=== PATIENT | female | born 1980 | race Caucasian/White ===

== ENCOUNTER 2017-09-30 02:55 | Emergency (ER) | payer OTHER ==
--- NOTE | 2017-09-30 03:09 | PDOC ---
History of Present Illness - General Stated Complaint: LEG PAIN Time Seen by Provider: 09/30/17 03:09 - History of Present Illness Initial Comments: 37 year old female with multiple psychiatric conditions including BPD1 presenting with sudden onset left knee pain. Patient states that her left knee was suddenly dislocated earlier on the day before admission and she reduced it herself without pain. She went about her day without ambulatory difficulty and a sharp left knee pain woke her up suddenly out of bed. Since then she has had difficulty ambulating on her left leg but is able to actually ambulate with a slight limp. Describes the pain as 10/10 and sharp. She has never dislocated her knee before and states that she is becoming very anxious because of her pain. Denies fevers, chills, nausea, vomiting, diarrhea, constipation, chest pain, SOB, or other symptoms. 09/30/17 06:14 Past History - Past Medical History Allergies/Adverse Reactions: Allergies Allergy/AdvReac Type Severity Reaction Status Date / Time morphine Allergy Itching Verified 09/30/17 03:24 Home Medications: Ambulatory Orders Benztropine Mesylate [Cogentin -] 1 mg PO DAILY 09/30/17 Citalopram Hydrobromide [Celexa -] 10 mg PO DAILY 09/30/17 Haloperidol [Haldol -] 1 mg PO DAILY 09/30/17 Quetiapine Fumarate "Xr" [Seroquel Xr -] 400 mg PO DAILY 09/30/17 DVT: Yes - Surgical History Abdominal Surgery: Yes Cholecystectomy: Yes - Suicide/Smoking/Psychosocial Hx Smoking Status: No Smoking History: Current every day smoker Have you smoked in the past 12 months: Yes Number of Cigarettes Smoked Daily: 4 Review of Systems - Review of Systems Constitutional: No: Chills, Diaphoresis, Fever HEENTM: No: Blurred Vision, Nose Congestion Respiratory: No: Cough, Shortness of Breath, Stridor Cardiac (ROS): No: Chest Pain, Palpitations ABD/GI: No: Diarrhea, Nausea, Vomiting : No: Dysuria, Discharge Musculoskeletal: Yes: Joint Pain, Joint Stiffness. No: Muscle Weakness Integumentary: No: Bruising, Lesions, Rash Neurological: No: Headache, Numbness, Paresthesia Psychiatric: Yes: Anxiety, Depression, Frequent Crying, Stressors, Emotional Problems *Physical Exam - Physical Exam General Appearance: Yes: Nourished, Appropriately Dressed. No: Apparent Distress HEENT: positive: EOMI, VANESA, Normal ENT Inspection, Normal Voice Neck: positive: Trachea midline, Normal Thyroid, Supple. negative: Tender, Rigid Respiratory/Chest: positive: Lungs Clear, Normal Breath Sounds. negative: Chest Tender, Respiratory Distress Cardiovascular: positive: Regular Rhythm, Regular Rate Gastrointestinal/Abdominal: positive: Normal Bowel Sounds, Flat, Soft. negative : Tender Musculoskeletal: positive: Normal Inspection. negative: Decreased Range of Motion Extremity: positive: Normal Capillary Refill, Normal Inspection, Normal Range of Motion. negative: Tender Integumentary: positive: Normal Color, Dry, Warm Neurologic: positive: Fully Oriented, Alert, Normal Response, Motor Strength 5/ 5. negative: Normal Mood/Affect (becomes very tearful without inciting event) Medical Decision Making - Medical Decision Making 37 year old female with left knee pain that resolved with Tylenol PO. Knee XRs negative and patient wants to go home. Will DC home with PCP follow up and ibuprofen use instructions. 09/30/17 07:20 *DC/Admit/Observation/Transfer Diagnosis at time of Disposition: Knee pain Qualifiers: Chronicity: acute Laterality: left Qualified Code(s): M25.562 - Pain in left knee - Discharge Dispostion Disposition: HOME Condition at time of disposition: Improved Admit: No - Referrals Referrals: Chacorta Colin MD [Staff Physician] - - Patient Instructions Additional Instructions: Your knee is not broken, please come back to the ED if you have new or worsening symptoms. Please see your primary care physician within the nest 3 days. Please use tylenol and motrin for your knee pain. - Post Discharge Activity
[2017-09-30] MEDS ORDERED: ACETAMINOPHEN 1000 MG/100 ML VIAL (NON FORMULARY) IVPB ONE (03:25)
[2017-09-30] MEDS ORDERED: ONDANSETRON 4 MG/2 ML VIAL IVPUSH ONE (03:25)
[2017-09-30 03:26] VITALS: TEMP 98; BMI 30.9
[2017-09-30] MEDS ORDERED: ACETAMINOPHEN INJECTION 100 ML IVPB ONE ×2 (03:32→04:40)
[2017-09-30] MEDS ORDERED: ONDANSETRON 4 MG/2 ML VIAL ONE (03:33)
[2017-09-30] MEDS ORDERED: ACETAMINOPHEN 325 MG TABLET (FP) ONE (03:57)
[2017-09-30] MEDS ORDERED: ACETAMINOPHEN 500 MG TABLET (FP) PO ONE (04:45)
[2017-09-30 07:44] VITALS: BP 144/96; PULSE 88
--- NOTE | 2017-09-30 07:54 | PDOC ---
Attending Attestation - Resident Resident Name: Mayuri Redding - ED Attending Attestation I have performed the following: I have examined & evaluated the patient, The case was reviewed & discussed with the resident, I agree w/resident's findings & plan, Exceptions are as noted - HPI HPI: 09/30/17 07:50 Patient is a 37 year old female with a significant past medical history of DVT who presents to the ED with complaints of left knee pain that began earlier today. Patient reports walking this afternoon when her left knee suddenly popped out of its socket, stating she did not feel any immediate pain and popped it back into place and continued her day. She reports going to bed tonight and began to experience progressive dull knee pain, prompting her to come into the ED for further evaluation stating, i knew it was going to get worse tomorrow. Patient reports experiencing an episode of anxiety and nausea, followed by 1 episode of vomiting yesterday evening. No tx tried. Denies chest pain, Sob. Denies nausea, vomiting. Denies fever, chills. Denies decreased appetite. Denies any contact with sick individuals, out of state travelling. Denies any other symptoms. Allergies: Morphine Social history: Current smoker. No alcohol. No illicit drugs. Surgical history: Two C-sections, Cholecystectomy PMD: None - Physicial Exam PE: 09/30/17 07:50 GENERAL: Awake, alert, and fully oriented, in no acute distress HEAD: No signs of trauma EYES: PERRLA, EOMI, sclera anicteric, conjunctiva clear ENT: Auricles normal inspection, hearing grossly normal, nares patent, oropharynx clear without exudates. Moist mucosa NECK: Normal ROM, supple, no lymphadenopathy, JVD, or masses LUNGS: Breath sounds equal, clear to auscultation bilaterally. No wheezes, and no crackles HEART: Regular rate and rhythm, normal S1 and S2, no murmurs, rubs or gallops ABDOMEN: Soft, nontender, normoactive bowel sounds. No guarding, no rebound. No masses EXTREMITIES: Normal range of motion, no edema. No clubbing or cyanosis. No cords , erythema. L knee with no deformities, bruising. +mild ttp in region of left MCL. 2+ DP and TP pulses b/l NEUROLOGICAL: Normal speech, cranial nerves intact, negative pronator drift, 5/ 5 strength in all 4 extremities, normal sensation to light touch in all 4 extremities, normal cerebellar exam, normal gait, normal reflexes and tone SKIN: Warm, Dry, normal turgor, no rashes or lesions noted. - Medical Decision Making 09/30/17 07:50 37-year-old female presents with left knee pain after sensation that it popped out of the socket medially and relocated itself earlier today. Patient has been ambulating comfortably on the knee since, but began to experience pain this evening. Exam with minimal ttp to L MCL area, possible ligamentous injury? Knee is NV intact. Pt able to ambulate on the L knee, with strong distal pulses. KAROL 1.3 in LLE, thus no evidence of vascular injury. With pt bearing weight on knee , unlikely knee dislocation. XR with no bony pathology, pt feels better with tylenol. Ambulating in ED, requests DC home. I discussed the physical exam findings, ancillary test results and final diagnoses with the patient. I answered all of the patient's questions. The patient was satisfied with the care received and felt comfortable with the discharge plan and treatment plan. The patient will call their primary care physician within 24 hours to arrange follow-up and will return to the Emergency Department with any new, persistent or worsening symptoms.
--- NOTE | 2017-09-30 15:59 | EKG ---
Test Reason : Blood Pressure : / mmHG Vent. Rate : 095 BPM Atrial Rate : 095 BPM P-R Int : 130 ms QRS Dur : 080 ms QT Int : 404 ms P-R-T Axes : 052 028 016 degrees QTc Int : 507 ms NORMAL SINUS RHYTHM LEFT ATRIAL ENLARGEMENT PROLONGED QT ABNORMAL ECG Confirmed by MD CHELSEA, ZHANNA ([id number]) on 09/30/2017 3:59:37 PM Referred By: Confirmed By:ZHANNA TRAN MD
== END 2017-09-30 07:44 | disposition home or self-care (01) ==
LOC: JER 02:55
DX: M25.562 Pain in left knee (principal); F31.89 Other bipolar disorder; F41.8 Other specified anxiety disorders; Z86.718 Personal history of other venous thrombosis and embolism; F17.210 Nicotine dependence, cigarettes, uncomplicated
CPT/HCPCS: 73564-TC-LT-FY; 84703; 93005; 93010; 99282-25

== ENCOUNTER 2017-12-26 13:30 | Emergency (ER) | payer OTHER ==
[2017-12-26 13:42] VITALS: BP 130/93; PULSE 93; TEMP 97.3; BMI 42.5
--- NOTE | 2017-12-26 14:15 | PDOC ---
History of Present Illness - General Chief Complaint: Cold Symptoms Stated Complaint: COLD SYMPTOMS - History of Present Illness Initial Comments: 37-year-old female presents for evaluation of right ear pain congestion and fever 7 days she takes Errico for bipolar disorder. 12/26/17 14:10 Past History - Past Medical History Allergies/Adverse Reactions: Allergies Allergy/AdvReac Type Severity Reaction Status Date / Time morphine Allergy Itching Verified 12/26/17 13:38 Home Medications: Ambulatory Orders Benztropine Mesylate [Cogentin -] 1 mg PO DAILY 09/30/17 Citalopram Hydrobromide [Celexa -] 10 mg PO DAILY 09/30/17 Haloperidol [Haldol -] 1 mg PO DAILY 09/30/17 Quetiapine Fumarate "Xr" [Seroquel Xr -] 400 mg PO DAILY 09/30/17 Amoxicillin - [Amoxicillin 500mg Capsule -] 500 mg PO BID #20 capsule 12/26/17 Cetirizine HCl/Pseudoephedrine [Zyrtec-D Tablet] 1 each PO DAILY #30 tab.er.12h 12/26/17 COPD: No DVT: Yes - Surgical History Abdominal Surgery: Yes Cholecystectomy: Yes - Immunization History Immunization Up to Date: Yes - Suicide/Smoking/Psychosocial Hx Smoking Status: No Smoking History: Current every day smoker Have you smoked in the past 12 months: Yes Number of Cigarettes Smoked Daily: 20 Information on smoking cessation initiated: No Hx Alcohol Use: No Drug/Substance Use Hx: No Substance Use Type: None Review of Systems - Review of Systems Constitutional: Yes: See HPI, Chills, Fever HEENTM: Yes: See HPI, Ear Pain, Ear Discharge, Nose Congestion. No: Hearing Loss All Other Systems: Reviewed and Negative *Physical Exam - Vital Signs Last Vital Signs Temp Pulse Resp BP Pulse Ox 97.3 F L 93 H 16 130/93 100 12/26/17 13:38 12/26/17 13:38 12/26/17 13:38 12/26/17 13:38 12/26/17 13:38 - Physical Exam Comments: GENERAL: The patient is awake, alert, and fully oriented, in no acute distress. HEAD: Normal with no signs of trauma. EYES: Pupils equal, round and reactive to light, extraocular movements intact, sclera anicteric, conjunctiva clear. ENT: The left ear canal and tympanic membrane is normal. The right ear canal is erythematous no exudate is appreciated there appears to be an exudative effusion behind the tympanic membrane, nares patent, oropharynx clear without exudates. Moist mucous membranes. NECK: Normal range of motion, supple without lymphadenopathy, JVD, or masses. LUNGS: Breath sounds equal, clear to auscultation bilaterally. No wheezes, and no crackles. HEART: Regular rate and rhythm, normal S1 and S2 without murmur, rub or gallop. ABDOMEN: Soft, nontender, normoactive bowel sounds. No guarding, no rebound. No masses. EXTREMITIES: Normal range of motion, no edema. No clubbing or cyanosis. No cords, erythema, or tenderness. NEUROLOGICAL: Cranial nerves II through XII grossly intact. Normal speech, normal gait. PSYCH: Normal mood, normal affect. SKIN: Warm, Dry, normal turgor, no rashes or lesions noted. 12/26/17 14:11 Medical Decision Making - Medical Decision Making Otitis media supporativa I will treat her with amoxicillin as well as a decongestant 12/26/17 14:12 *DC/Admit/Observation/Transfer Diagnosis at time of Disposition: Otitis media - Discharge Dispostion Disposition: HOME Condition at time of disposition: Stable Decision to Admit order: No - Referrals Referrals: Sammie Gonzales MD [Primary Care Provider] - - Patient Instructions Printed Discharge Instructions: Middle Ear Infection Additional Instructions: Take antibiotics as prescribed. Return to the emergency room should her symptoms worsen or go unresolved. I've also given you an decongestant which will help with your congestive symptoms. Follow-up with her primary care physician the next 1-2 days for further evaluation and treatment options. - Post Discharge Activity
== END 2017-12-26 14:19 | disposition home or self-care (01) ==
LOC: JERFT 13:30
DX: H66.90 Otitis media, unspecified, unspecified ear (principal); F17.210 Nicotine dependence, cigarettes, uncomplicated; Z86.718 Personal history of other venous thrombosis and embolism
CPT/HCPCS: 99281-25